=== PATIENT | female | born 1960 | race Caucasian/White ===

== ENCOUNTER → 2017-07-22 15:26 | Outpatient (CLI) | payer OTHER, SELFPAY ==
--- NOTE | 2017-07-22 | DI.RAD.S_ITS ---
PROCEDURE: XR FINGER RT MIN 2V INDICATIONS: FINGER INJURY TECHNIQUE: AP hand, 2 views of the fourth finger acquired. COMPARISON: [facility], CR, FINGER LT, 12/08/2009, 9:28. FINDINGS: Bones: No fractures or dislocations. No suspicious bony lesions. Soft tissues: No suspicious soft tissue calcifications. 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 Dictated by: Kristofer Chong M.D. on 07/22/2017 at 16:26 Approved by: Kristofer Chong M.D. on 07/22/2017 at 16:27
== END ==
PROVIDERS: Family Provider Family Medicine; PCP Family Medicine; Visit Provider Family Medicine
DX: S69.91XA Unspecified injury of right wrist, hand and finger(s), initial encounter (principal)
CPT/HCPCS: 73140

== ENCOUNTER → 2022-01-17 12:40 | Outpatient (CLI) | payer OTHER, SELFPAY ==
[2022-01-17 13:32] LABS: COVID-19 CEPHEID 4-PLEX PCR Negative (Negative); Influenza A - CEPHEID Flu A NEGATIVE (NEGATIVE); Influenza B - CEPHEID Flu B NEGATIVE (NEGATIVE); Respiratory Syncytial Virus Negative (Negative)
== END ==
PROVIDERS: Family Provider Family Medicine; PCP Family Medicine; Visit Provider Physician Assistant
DX: R05.9 Cough, unspecified (principal)
CPT/HCPCS: 0241U